=== PATIENT | female | born 1990 | race Two or more races ===

== ENCOUNTER → 2020-02-08 | Outpatient (CLI) | payer BC ==
--- NOTE | 2020-02-08 09:12 | RAD ---
Pelvic ultrasound 02/08/2020 CLINICAL HISTORY: Inability to localize patient's IUD. TECHNIQUE: Using the distended urinary bladder as a sonographic window, a real-time ultrasound examination of the pelvis was performed. Multiple images were obtained. FINDINGS: The uterus is within normal limits in size. It measures 9.3 x 6.3 x 3.8 cm in longitudinal, transverse, and AP dimensions. No focal abnormality of the uterus is seen. An IUD is seen within the endometrial canal. The endometrial echo complex is difficult to discern from the IUD on these images but does not appear thickened. Both ovaries are within normal limits in size. The right ovary measures 2.5 x 2.2 x 1.9 cm in size. The left ovary measures 3.5 x 3.4 x 2.3 cm in size. A 8mm follicle is seen involving the right ovary. Normal color-flow and pulse Doppler imaging to both ovaries is seen. A 1 cm nabothian cyst is seen within the cervix. No free fluid is noted. IMPRESSION: An IUD is seen within the endometrial canal of the uterus. Otherwise negative study. Electronically signed by: Tripp Grove MD (02/08/2020 9:09 AM) [facility] [place]
== END | disposition home or self-care (01) ==
LOC: US 07:47
PROVIDERS: ATTEND Family Medicine
DX: Z30.431 Encounter for routine checking of intrauterine contraceptive device (principal); N88.8 Other specified noninflammatory disorders of cervix uteri
CPT/HCPCS: 76856

== ENCOUNTER 2021-10-02 20:37 | Emergency (ER) | payer SELFPAY ==
[~2021-10-02] VITALS: Ht 167.6 cm; Wt 78.1 kg
[2021-10-02 21:56] LABS: BASO % 0 % (0-3); EOS % 1 % (0-3); HEMATOCRIT 40.2 % (36.0-47.0); HEMOGLOBIN 13.5 g/dL (12.0-15.5); LYMPH # 1.9 x10^3/uL (1.0-4.8); LYMPH % 26 % (24-48); MEAN CORPUSCULAR HEMOGLOBIN 31 pg (25-35); MEAN CORPUSCULAR HGB CONC 34 g/dL (31-37); MEAN CORPUSCULAR VOLUME 91 fL (79-100); MONO # 0.6 x10^3/uL (0.0-1.1); MONO % 9 % (0-9); NEUT # 4.6 x10^3uL (1.8-7.7); NEUT % 64 % (31-73); PLATELET COUNT 233 x10^3/uL (140-400); RED CELL DISTRIBUTION WIDTH 12.7 % (11.5-14.5); WHITE BLOOD COUNT 7.2 x10^3/uL (4.0-11.0)
[2021-10-02 21:59] LABS: BILIRUBIN,URINE NEG (NEG); CLARITY,URINE HAZY; COLOR,URINE YELLOW; GLUCOSE,URINE NEG (NEG); NITRITE,URINE POS (NEG); UROBILINOGEN,URINE 0.2 mg/dL (0.2 mg/dL)
[2021-10-02 22:00] LABS: BACTERIA,URINE MANY /HPF (0-FEW); SQUAMOUS EPITHELIAL CELL,UR OCC /LPF
[2021-10-02] MEDS ORDERED: IV NORMAL SALINE 1,000ML 1,000 ML IV ONE (22:00)
[2021-10-02] MEDS ORDERED: ONDANSETRON PF 4 MG/2 ML VIAL. IVP ONE (22:00)
[2021-10-02 22:01] LABS: CALCIUM 8.5 mg/dL (8.5-10.1); CREATININE 0.7 mg/dL (0.6-1.0); GFR 97.6; POTASSIUM 3.7 mmol/L (3.5-5.1)
[2021-10-02 22:07] LABS: ALBUMIN 3.8 g/dL (3.4-5.0); ALBUMIN/GLOBULIN RATIO 1.1 (1.0-1.7); MAGNESIUM 2.3 mg/dL (1.8-2.4); TOTAL BILIRUBIN 0.4 mg/dL (0.2-1.0); TOTAL PROTEIN 7.2 g/dL (6.4-8.2)
[2021-10-02] MEDS ORDERED: KETOROLAC 15 MG/ML VIAL. IVP ONE (22:30)
[2021-10-02] MEDS ORDERED: IV NORMAL SALINE 50ML 50 ML ONE (22:33)
[2021-10-02] MEDS ORDERED: cefTRIAXone SODIUM 1 GM VIAL ONE (22:33)
--- NOTE | 2021-10-02 22:34 | PHYS DOC ---
Past History Past Medical History: No Pertinent History Past Surgical History: No Surgical History Smoking: Quit Greater Than 1 Year Alcohol Use: None Drug Use: None General Adult EDM: Chief Complaint: FLANK PAIN HPI: HPI: 31-year-old female presents with report of sudden right flank pain that started this afternoon. Patient with report of colposcopy that was performed in her doctor's office today secondary to abnormal Pap smear. Patient reports CONTACT OFFICER office is at [facility] on [facility]. Patient reports she has also been having 1 weeks history of dysuria and increased urinary frequency prior to today's episode. Denies trauma. Patient reports she has had some positive urine test however they were thought to be falsely positive as patient reports a current IUD. Patient reports some blood work was obtained at the doctor's office today but was not resulted. Patient reports some associated nausea without vomiting. Denies fever or chills. Patient does report taking some ibuprofen approximately 3 hours prior to arrival without improvement of symptoms. Review of Systems: Review of Systems: Constitutional: Denies fever or chills Eyes: Denies redness or eye pain HENT: Denies nasal congestion or sore throat Respiratory: Denies cough or shortness of breath Cardiovascular: Denies chest pain or palpitations GI: Reports abdominal pain and nausea; denies vomiting : Report dysuria and urinary frequency; denies hematuria Musculoskeletal: Denies joint pain; reports right flank pain Integument: Denies rash or skin lesions Neurologic: Denies headache, focal weakness or sensory changes Complete systems were reviewed and found to be within normal limits, except as documented in this note. Current Medications: Current Meds: Current Medications Medications (Trade) Dose Ordered Sig/Ean Start Time Stop Time Status Last Admin Dose Admin Ceftriaxone Sodium 1 gm/ Sodium Chloride 50 ml @ 100 mls/hr 1X ONCE 10/02/21 22:15 10/02/21 22:44 Fentanyl Citrate (Fentanyl 2ml Vial) 50 mcg 1X ONCE 10/02/21 22:00 10/02/21 22:01 DC 10/02/21 21:39 50 MCG Ondansetron HCl (Zofran) 4 mg 1X ONCE 10/02/21 22:00 10/02/21 22:01 DC 10/02/21 21:39 4 MG Sodium Chloride 1,000 ml @ 1,000 mls/hr 1X ONCE 10/02/21 22:00 10/02/21 22:59 10/02/21 21:40 1,000 MLS/HR Allergies: Allergies: Allergies Coded Allergies Type Severity Reaction Last Updated Verified No Known Drug Allergies 10/02/21 No Physical Exam: PE: Constitutional: Well developed, well nourished, no acute distress, non-toxic appearance HENT: Normocephalic, atraumatic Eyes: Conjunctiva normal, no discharge Neck: Normal range of motion,supple Lungs & Thorax: No respiratory distress, equal chest rise and fall Abdomen: Soft, no tenderness, no guarding/rebound tenderness/distention Skin: Warm, dry, no erythema, no rash Back: No tenderness, right CVA tenderness Extremities: No tenderness, ROM intact, no edema Neurologic: Alert and oriented X 3, no focal deficits noted Psychologic: Affect anxious, judgment normal Current Patient Data: Labs: Laboratory Tests Test 10/02/21 20:47 10/02/21 21:28 Urine Collection Type Unknown Urine Color Yellow Urine Clarity Hazy Urine pH 6.0 Urine Specific [place] 1.025 Urine Protein Neg (NEG-TRACE) Urine Glucose (UA) Neg mg/dL (NEG) Urine Ketones (Stick) Trace mg/dL (NEG) Urine Blood Mod (NEG) Urine Nitrite Pos (NEG) Urine Bilirubin Neg (NEG) Urine Urobilinogen Dipstick 0.2 mg/dL (0.2 mg/dL) Urine Leukocyte Esterase Neg (NEG) Urine RBC 3-5 /HPF (0-2) Urine WBC 5-10 /HPF (0-4) Urine Squamous Epithelial Cells Occ /LPF Urine Bacteria Many /HPF (0-FEW) White Blood Count 7.2 x10^3/uL (4.0-11.0) Red Blood Count 4.40 x10^6/uL (3.50-5.40) Hemoglobin 13.5 g/dL (12.0-15.5) Hematocrit 40.2 % (36.0-47.0) Mean Corpuscular Volume 91 fL (79-100) Mean Corpuscular Hemoglobin 31 pg (25-35) Mean Corpuscular Hemoglobin Concent 34 g/dL (31-37) Red Cell Distribution Width 12.7 % (11.5-14.5) Platelet Count 233 x10^3/uL (140-400) Neutrophils (%) (Auto) 64 % (31-73) Lymphocytes (%) (Auto) 26 % (24-48) Monocytes (%) (Auto) 9 % (0-9) Eosinophils (%) (Auto) 1 % (0-3) Basophils (%) (Auto) 0 % (0-3) Neutrophils # (Auto) 4.6 x10^3uL (1.8-7.7) Lymphocytes # (Auto) 1.9 x10^3/uL (1.0-4.8) Monocytes # (Auto) 0.6 x10^3/uL (0.0-1.1) Eosinophils # (Auto) 0.0 x10^3/uL (0.0-0.7) Basophils # (Auto) 0.0 x10^3/uL (0.0-0.2) Sodium Level 138 mmol/L (136-145) Potassium Level 3.7 mmol/L (3.5-5.1) Chloride Level 105 mmol/L (98-107) Carbon Dioxide Level 23 mmol/L (21-32) Anion Gap 10 (6-14) Blood Urea Nitrogen 7 mg/dL (7-20) Creatinine 0.7 mg/dL (0.6-1.0) Estimated GFR (Cockcroft-Gault) 97.6 BUN/Creatinine Ratio 10 (6-20) Glucose Level 83 mg/dL (70-99) Lactic Acid Level 0.5 mmol/L (0.4-2.0) Calcium Level 8.5 mg/dL (8.5-10.1) Magnesium Level 2.3 mg/dL (1.8-2.4) Total Bilirubin 0.4 mg/dL (0.2-1.0) Aspartate Amino Transferase (AST) 21 U/L (15-37) Alanine Aminotransferase (ALT) 29 U/L (14-59) Alkaline Phosphatase 74 U/L (46-116) Total Protein 7.2 g/dL (6.4-8.2) Albumin 3.8 g/dL (3.4-5.0) Albumin/Globulin Ratio 1.1 (1.0-1.7) Lipase 141 U/L (73-393) Vital Signs: Vital Signs Date Time Temp Pulse Resp B/P (MAP) Pulse Ox O2 Delivery O2 Flow Rate FiO2 10/02/21 21:39 18 99 10/02/21 20:45 98.4 83 119/74 (89) Room Air EKG: EKG: [] Radiology/Procedures: Radiology/Procedures: [] Heart Score: C/O Chest Pain: N/A Course & Med Decision Making: Course & Med Decision Making Pertinent Labs and Imaging studies reviewed. (See chart for details) Patient presents with sudden right flank pain that started this afternoon. History of recent colposcopy at her GYNs office today at [facility]. Patient does report 1 week history of dysuria and urinary frequency. Also with report of "false positive urine test ". Symptomatic treatment provided. IV fluid hydration given. Labs obtained and posted to chart. CBC and lactic acid within normal limits. BUN/creatinine also within normal limits. UA positive for nitrites. Empiric antibiotics initiated. Beta-hCG obtained and 1704. Cannot exclude . Patient advised to follow closely with OB-CONTACT OFFICER regarding. Imaging held at this time. Patient stable for discharge with outpatient follow-up with PCP/OB-CONTACT OFFICER. Discussed findings and plan with patient and family, who acknowledge understanding and agreement. Melissa Disclaimer: Melissa Disclaimer: This electronic medical record was generated, in whole or in part, using a voice recognition dictation system. Departure Departure: Impression: Primary Impression: Pyelonephritis Additional Impression: Elevated serum hCG Disposition: HOME / SELF CARE / HOMELESS Condition: STABLE Referrals: ALEE FAUST (PCP) Patient Instructions: ABCs of , Pyelonephritis, Adult, [id number] Additional Instructions: Increase fluid hydration. Take over the counter Tylenol as needed for pain or discomfort. Scripts Phenazopyridine Hcl (PYRIDIUM) 200 Mg Tablet 200 MG PO Q8HRS for urinary tract infection for 2 Days, #6 TAB Prov: TALIA MAHONEY DO 10/02/21 Cephalexin (KEFLEX) 500 Mg Capsule 1 CAP PO TID for Pyelonephritis for 7 Days, #21 CAP Prov: TALIA MAHONEY DO 10/02/21 Ondansetron (ONDANSETRON ODT) 4 Mg Tab.rapdis 1 TAB PO PRN Q6-8HRS PRN for NAUSEA, #16 TAB Prov: TALIA MAHONEY DO 10/02/21 TALIA MAHONEY DO Oct 02, 2021 22:34
[2021-10-02] MEDS ORDERED: ONDA4TAB12 PO (22:39)
[2021-10-02] MEDS ORDERED: CEPH500C PO (22:39)
[2021-10-02] MEDS ORDERED: PHEN-318 PO (22:48)
[2021-10-02 23:13] VITALS: BP 108/59
[2021-10-02] MEDS ORDERED: PHENAZOPYRIDINE 200 MG TABLET. PO ONE (23:30)
== END 2021-10-02 23:16 | disposition home or self-care (01) ==
LOC: ER 20:37
DX: N12 Tubulo-interstitial nephritis, not specified as acute or chronic (principal); R89.1 Abnormal level of hormones in specimens from other organs, systems and tissues; Z87.891 Personal history of nicotine dependence
CPT/HCPCS: 36415; 80053; 81001; 83605; 83690; 83735; 84702; 85025; 87077; 87086; 87186; 96361; 96365; 96375; 99284; J0696; J1885; J2405; J3010; J7030

== ENCOUNTER 2021-10-05 16:13 | Emergency (ER) | payer BC ==
[~2021-10-05] VITALS: Ht 167.6 cm; Wt 78.1 kg
[~2021-10-05 16:13] MED LIST: CEPH500C PO; ONDA4TAB12 PO; PHEN-318 PO
[2021-10-05] MEDS ORDERED: MORPHINE SULFATE 4 MG/ML DISP.SYRIN. IV PRN (17:00)
[2021-10-05] MEDS ORDERED: ONDANSETRON PF 4 MG/2 ML VIAL. IVP ONE (17:00)
[2021-10-05 17:39] LABS: BASO % 1 % (0-3); EOS % 1 % (0-3); HEMATOCRIT 39.6 % (36.0-47.0); HEMOGLOBIN 13.4 g/dL (12.0-15.5); LYMPH # 0.7 x10^3/uL (1.0-4.8); LYMPH % 15 % (24-48); MEAN CORPUSCULAR HEMOGLOBIN 31 pg (25-35); MEAN CORPUSCULAR HGB CONC 34 g/dL (31-37); MEAN CORPUSCULAR VOLUME 92 fL (79-100); MONO # 0.6 x10^3/uL (0.0-1.1); MONO % 14 % (0-9); NEUT % 69 % (31-73); PLATELET COUNT 213 x10^3/uL (140-400); RED BLOOD COUNT 4.32 x10^6/uL (3.50-5.40); WHITE BLOOD COUNT 4.4 x10^3/uL (4.0-11.0)
--- NOTE | 2021-10-05 17:41 | PHYS DOC ---
Past History Past Medical History: No Pertinent History (RICHIE PLUMMER APRN) Past Surgical History: No Surgical History (RICHIE PLUMMER APRN) Smoking: Quit Greater Than 1 Year Alcohol Use: None Drug Use: None (RICHIE PLUMMER APRN) General Adult EDM: Chief Complaint: ABDOMINAL PAIN HPI: HPI: Patient is a 31-year-old female presents with lower abdominal pain, vaginal bleeding, nausea. Patient states that on the fourth she had a coloscopy, and since then she has had abdominal cramping and bleeding. "I feel like that I am having contractions". Denies dysuria or urgency. Patient denies taking anything at home for pain. (RICHIE PLUMMER APRN) Review of Systems: Review of Systems: ROS At least 10 ROS systems have been reviewed and are negative except as documented in the HPI. General: Negative except as outlined in HPI above. Skin: Negative except as outlined in HPI above. HEENT: Negative except as outlined in HPI above. Neck: Negative except as outlined in HPI above. Respiratory: Negative except as outlined in HPI above.. Cardiovascular: Negative except as outlined in HPI above. Abdomen: Negative except as outlined in HPI above. : Negative except as outlined in HPI above. Back/MSK: Negative except as outlined in HPI above. Neuro: Negative except as outlined in HPI above. Psych: Negative except as outlined in HPI above. (RICHIE PLUMMER APRN) Current Medications: Current Meds: Current Medications Medications (Trade) Dose Ordered Sig/Ean Start Time Stop Time Status Last Admin Dose Admin Morphine Sulfate (Morphine 4mg Syringe) 4 mg PRN 1X PRN 10/05/21 17:00 10/05/21 17:18 4 MG Ondansetron HCl (Zofran) 4 mg 1X ONCE 10/05/21 17:00 10/05/21 17:01 DC 10/05/21 17:19 4 MG (RICHIE PLUMMER APRN) Allergies: Allergies: Allergies Coded Allergies Type Severity Reaction Last Updated Verified No Known Drug Allergies 10/02/21 No (RICHIE PLUMMER APRN) Physical Exam: PE: Constitutional: Well developed, well nourished, no acute distress, non-toxic appearance. [] HENT: Normocephalic, atraumatic, bilateral external ears normal, oropharynx moist, no oral exudates, nose normal. [] Eyes: PERRLA, EOMI, conjunctiva normal, no discharge. [] Neck: Normal range of motion, no tenderness, supple, no stridor. [] Cardiovascular:Heart rate regular rhythm, no murmur [] Lungs & Thorax: Bilateral breath sounds clear to auscultation [] Abdomen: Bowel sounds normal, soft, lower abdominal tenderness Skin: Warm, dry, no erythema, no rash. [] Back: No tenderness, no CVA tenderness. [] Extremities: No tenderness, no cyanosis, no clubbing, ROM intact, no edema. Neurologic: Alert and oriented X 3, normal motor function, normal sensory function, no focal deficits noted. [] Psychologic: Affect normal, judgement normal, mood normal. [] (RICHIE PLUMMER APRN) Current Patient Data: Vital Signs: Vital Signs Date Time Temp Pulse Resp B/P (MAP) Pulse Ox O2 Delivery O2 Flow Rate FiO2 10/05/21 17:18 16 98 Room Air 10/05/21 16:15 98.0 95 116/66 (83) (RICHIE PLUMMER APRN) EKG: EKG: [] (RICHIE PLUMMER APRN) Radiology/Procedures: Radiology/Procedures: []Exam: CT of abdomen and pelvis without contrast INDICATION: Pain, lower abdomen TECHNIQUE: Sequential axial images through the abdomen and pelvis obtained w ithout IV contrast. Sagittal and coronal reformatted images were reconstructed from the axial data and reviewed. Exposure: One or more of the following in the visualized dose reduction techniques were utilized for this examination: 1. Automated exposure control 2. Adjustment of the MA and/or KV according to patient size 3. Use of iterative of reconstructive technique Comparisons: None FINDINGS: Heart size is normal. No pericardial effusion. Visualized lung bases are clear. No pleural effusion. Evaluation of solid organs is limited secondary to noncontrast technique. Liver, spleen, pancreas, gallbladder and adrenals are unremarkable. No perinephric inflammation or hydronephrosis. No renal or ureteral calculi are identified. Uterus is nonenlarged. IUD noted in the uterus. Small amount of hemorrhagic free fluid noted in the pelvis. There is a hyper attenuating rounded lesion in the right adnexa which measures 3.5 cm in diameter. Large and small bowel are unremarkable. Appendix is not identified. No free intra-abdominal air or fluid. No obstruction. Abdominal aorta has normal course and caliber. No enlarged abdominal lymph nodes are identified. No suspicious osseous lesions or acute fractures. IMPRESSION: Heterogenous cystic lesion at the left adnexa measuring 3.5 cm in diameter. There is a small amount of hemorrhagic ascites. Pelvic ultrasound is recommended for further evaluation. Correlate with test. Electronically signed by: Marisol Marsh MD (10/05/2021 6:08 PM) [facility] (RICHIE PLUMMER APRN) Heart Score: C/O Chest Pain: No Risk Factors: Risk Factors: DM, Current or recent (<one month) smoker, HTN, HLP, family history of CAD, obesity. Risk Scores: Score 0 - 3: 2.5% MACE over next 6 weeks - Discharge Home Score 4 - 6: 20.3% MACE over next 6 weeks - Admit for Clinical Observation Score 7 - 10: 72.7% MACE over next 6 weeks - Early Invasive Strategies (RICHIE PLUMMER APRN) Course & Med Decision Making: Course & Med Decision Making Pertinent Labs and Imaging studies reviewed. (See chart for details) [] 31-year-old female presents with lower abdominal pain, vaginal bleeding and nausea since her coloscopy on 114. All labs are unremarkable. CT of abdomen and pelvis shows an ovarian cyst. Discussed results with patient. Advised patient to follow-up with her PLASTIC WORKER on Thursday. Motrin Tylenol at home for discomfort. Patient given strict return precautions. Patient verbalized understanding of discharge instructions. Patient is hemodynamically stable. (RICHIE PLUMMER APRN) Course & Med Decision Making I was the Attending physician on the above date of service of this patient. This patient was evaluated, examined, treated, and dispositioned from the emergency department by the mid-level practitioner. Although I was working at the time , no assistance was requested. Electronically signed, Corwin Xiong DO (CORWIN XIONG DO) Melissa Disclaimer: Melissa Disclaimer: This electronic medical record was generated, in whole or in part, using a voice recognition dictation system. (RICHIE PLUMMER APRN) Departure Departure: Impression: Primary Impression: Abdominal pain Qualified Codes: R10.84 - Generalized abdominal pain Disposition: HOME / SELF CARE / HOMELESS Condition: STABLE Referrals: ALEE FAUST (PCP) Patient Instructions: Ovarian Cyst, [id number] Additional Instructions: You were seen in the emergency room for abdominal pain. CT showed an ovarian cyst. Sending you home with some pain medication until you can follow-up with your PLASTIC WORKER. Please call on Thursday make a follow-up appointment. Return to emergency room if you have worsening symptoms or concerns. EMERGENCY DEPARTMENT GENERAL DISCHARGE INSTRUCTIONS Thank you for coming to [facility] (ED) today and trusting us with you care. We trust that you had a positivie experience in our Emergency Department. If you wish to speak to the department management, you may call the director at [phone]. YOUR FOLLOW UP INSTRUCTIONS ARE FOLLOWS: 1. Do you have a private Doctor? If you do not have a private doctor, please ask for a resource list of physicians or clinics that may be able to assist you with follow up care. 2. The Emergency Physician has interpreted your x-rays. The X-Ray specialist will also review them. If there is a change in the findings, you will be notified in 48 hours when at all possible. 3. A lab test or culture has been done, your results will be reviewed and you will be notified if you need a change in treatment. ADDITIONAL INSTRUCTIONS AND INFORMATION: 1. Your care today has been supervised by a physician who is specially trained in emergency care. Many problems require more than one evaluation for a complete diagnosis and treatment. We recommend that you schedule your follow up appointment as recommended to ensure complete treatment of you illness or injury. If you are unable to obtain follow up care and continue to have a problem, or if your condition worsens, we recommend that you return to the ED. 2. We are not able to safely determine your condition over the phone nor are we able to give sound medical advice over the phone. For these safety reasons, if you call for medical advice we will ask you to come to the ED for further evaluation. 3. If you have any questions regarding these discharge instructions please call the ED at [phone]. SAFETY INFORMATION: In the interest of safety, wellness, and injury prevention; we encourage you to wear your sealbelt, if you smoke; quite smoking, and we encourage family to use a prote ctive helmet for bicycling and other sporting events that present an increased risk for head injury. IF YOUR SYMPTOMS WORSEN OR NEW SYMPTOMS DEVELOP, OR YOU HAVE CONCERNS ABOUT YOUR CONDITION; OR IF YOUR CONDITION WORSENS WHILE YOU ARE WAITING FOR YOUR FOLLOW UP APPOINTMENT; EITHER CONTACT YOUR PRIMARY CARE DOCTOR, THE PHYSICIAN WHOSE NAME AND NUMBER YOU WERE GIVEN, OR RETURN TO THE ED IMMEDIATELY. Scripts Hydrocodone Bit/Acetaminophen (HYDROCODONE-APAP 5-325 ) 1 Each Tablet 1 TAB PO PRN Q6HRS PRN for PAIN for 3 Days, #12 TAB 0 Refills Prov: RICHIE PLUMMER APRN 10/05/21 RICHIE PLUMMER APRN Oct 05, 2021 17:41 CORWIN XIONG DO Oct 09, 2021 00:39
[2021-10-05 17:48] LABS: CALCIUM 8.4 mg/dL (8.5-10.1); CREATININE 0.9 mg/dL (0.6-1.0); POTASSIUM 3.3 mmol/L (3.5-5.1)
[2021-10-05 17:53] LABS: ALBUMIN 3.6 g/dL (3.4-5.0); MAGNESIUM 2.1 mg/dL (1.8-2.4); TOTAL BILIRUBIN 0.6 mg/dL (0.2-1.0); TOTAL PROTEIN 7.1 g/dL (6.4-8.2)
--- NOTE | 2021-10-05 18:10 | RAD ---
Exam: CT of abdomen and pelvis without contrast INDICATION: Pain, lower abdomen TECHNIQUE: Sequential axial images through the abdomen and pelvis obtained without IV contrast. Sagit olimpia and coronal reformatted images were reconstructed from the axial data and reviewed. Exposure: One or more of the following in the visualized dose reduction techniques were utilized for this examination: 1. Automated exposure control 2. Adjustment of the MA and/or KV according to patient size 3. Use of iterative of reconstructive technique Comparisons: None FINDINGS: Heart size is normal. No pericardial effusion. Visualized lung bases are clear. No pleural effusion. Evaluation of solid organs is limited secondary to noncontrast technique. Liver, spleen, pancreas, gallbladder and adrenals are unremarkable. No perinephric inflammation or hydronephrosis. No renal or ureteral calculi are identified. Uterus is nonenlarged. IUD noted in the uterus. Small amount of hemorrhagic free fluid noted in the p baylee. There is a hyper attenuating rounded lesion in the right adnexa which measures 3.[address] Large and small bowel are unremarkable. Appendix is not identified. No free intra-abdominal air or fl uid. No obstruction. Abdominal aorta has normal course and caliber. No enlarged abdominal lymph nodes are identified. No suspicious osseous lesions or acute fractures. IMPRESSION: Heterogenous cystic lesion at the left adnexa measuring 3.5 cm in diameter. There is a small amount o f hemorrhagic ascites. Pelvic ultrasound is recommended for further evaluation. Correlate with pregna ncy test. Electronically signed by: Marisol Marsh MD (10/05/2021 6:08 PM) [facility]
[2021-10-05 18:56] LABS: BACTERIA,URINE 0 /HPF (0-FEW); BILIRUBIN,URINE NEG (NEG); CLARITY,URINE CLEAR; COLOR,URINE YELLOW; GLUCOSE,URINE NEG (NEG); NITRITE,URINE NEG (NEG); RBC,URINE >40 /HPF (0-2); UROBILINOGEN,URINE 0.2 mg/dL (0.2 mg/dL); WBC,URINE OCC /HPF (0-4)
[2021-10-05 19:37] VITALS: BP 101/51
[2021-10-05] MEDS ORDERED: HYDR-2155 PO (19:49)
[2021-10-05] MEDS ORDERED: HYDROcodone/APAP 5/325MG 1 TAB TABLET PO ONE (20:00)
== END 2021-10-05 20:30 | disposition home or self-care (01) ==
LOC: ER 16:13
DX: R10.84 Generalized abdominal pain (principal); N93.8 Other specified abnormal uterine and vaginal bleeding; R11.0 Nausea; Z87.891 Personal history of nicotine dependence
CPT/HCPCS: 36415; 74176; 80053; 81001; 83690; 83735; 85025; 96374; 96375; 99284; J2270; J2405